=== PATIENT | male | born 1995 | race African-American/Black ===

== ENCOUNTER 2017-12-14 21:06 | Emergency (ER) | payer OTHER ==
[~2017-12-14] VITALS: Ht 180.3 cm; Wt 64.0 kg
[2017-12-14 21:10] VITALS: BP 144/86; TEMP 97.8
[2017-12-14 22:23] VITALS: PULSE 88
== END 2017-12-14 22:23 | disposition home or self-care (01) ==
LOC: COL.ER 21:06
DX: J06.9 Acute upper respiratory infection, unspecified (principal); Z87.891 Personal history of nicotine dependence

== ENCOUNTER 2018-01-23 07:57 | Emergency (ER) | payer OTHER ==
[~2018-01-23] VITALS: Ht 180.3 cm; Wt 65.5 kg
[2018-01-23 08:07] VITALS: TEMP 98
[2018-01-23] MEDS ORDERED: LEXAPRO 10MG10 MG PO (08:10)
[2018-01-23 08:55] LABS: BASO # 0.1 (0.0-0.2); BASO % 1.3 % (0.0-2.0); EOS # 0.2 (0.0-0.7); EOS % 2.9 % (0-4.0); GRAN # 3.8 (1.4-6.5); GRAN % 62.1 % (42.2-75.2); HEMATOCRIT 44.7 % (42.0-52.0); HEMOGLOBIN 15.6 g/dl (13.5-18.0); LYMPH # 1.6 (1.2-3.4); LYMPH % 25.5 % (20.0-51.0); MEAN CELL VOLUME 83 fl (80.0-100.0); MEAN CORPUSCULAR HEMOGLOBIN 29 pg (27.0-31.0); MEAN CORPUSCULAR HGB CONC 35 g/dl (33.0-37.0); MEAN PLATELET VOLUME 9.3 fl (7.4-10.4); MONO # 0.5 (0.1-0.6); PLATELET COUNT 310 K/mm3 (130-400); RED BLOOD COUNT 5.37 M/mm3 (4.20-5.60); REDCELL DISTRIBUTION WIDTH-CV 13.6 % (11.5-14.5)
[2018-01-23 09:03] LABS: ALANINE AMINOTRANSFERASE 28 U/L (21-72); ALBUMIN 4.2 gm/dL (3.5-5.0); ALKALINE PHOSPHATASE 71 U/L (50-136); ANION GAP 12 mmol/L (7-16); AST,SGOT 35 U/L (15-37); BILIRUBIN,TOTAL 0.5 mg/dL (0.0-1.0); BLOOD UREA NITROGEN 11 mg/dL (9-20); CALCIUM 9.5 mg/dL (8.4-10.2); CARBON DIOXIDE 25 mmol/L (22-30); CHLORIDE 101 mmol/L (98-107); CREATININE, serum 0.87 mg/dL (0.66-1.25); GLUCOSE 85 mg/dL (74-106); POTASSIUM 3.7 mmol/L (3.4-5.0); SODIUM 139 mmol/L (137-145); TOTAL PROTEIN 7.6 gm/dL (6.4-8.2)
[2018-01-23 09:15] LABS: TROPONIN-I < 0.012 ng/mL (0.000-0.034)
[2018-01-23] MEDS ORDERED: PREDNISONE20 MG PO (10:20)
[2018-01-23] MEDS ORDERED: ZITHROMAX Z PA250 MG PO (10:20)
[2018-01-23 10:41] VITALS: BP 129/89; PULSE 66
== END 2018-01-23 10:46 | disposition home or self-care (01) ==
LOC: COL.ER 07:57
PROVIDERS: Emergency Medicine
DX: J45.909 Unspecified asthma, uncomplicated (principal); F17.210 Nicotine dependence, cigarettes, uncomplicated
CPT/HCPCS: J7512

== ENCOUNTER 2018-03-28 10:30 | Emergency (ER) | payer OTHER ==
[~2018-03-28] VITALS: Ht 180.3 cm; Wt 68.2 kg
[~2018-03-28 10:30] MED LIST: LEXAPRO 10MG10 MG PO; PREDNISONE20 MG PO; ZITHROMAX Z PA250 MG PO
[2018-03-28 10:33] VITALS: BP 138/78; PULSE 90; TEMP 98.2
== END 2018-03-28 11:22 | disposition home or self-care (01) ==
LOC: COL.ER 10:30
DX: S60.221A Contusion of right hand, initial encounter (principal); Z87.891 Personal history of nicotine dependence; W21.31XA Struck by shoe cleats, initial encounter; Y93.61 Activity, american tackle football

== ENCOUNTER 2018-04-28 16:32 | Emergency (ER) | payer OTHER ==
[~2018-04-28] VITALS: Ht 180.3 cm; Wt 68.2 kg
[2018-04-28 16:39] VITALS: BP 120/80; PULSE 115; TEMP 99
[2018-04-28] MEDS ORDERED: AMOXICILLIN 8751 TAB PO (17:12)
== END 2018-04-28 17:35 | disposition home or self-care (01) ==
LOC: COL.ER 16:32
DX: J01.90 Acute sinusitis, unspecified (principal); F17.210 Nicotine dependence, cigarettes, uncomplicated

== ENCOUNTER 2018-06-13 13:30 | Emergency (ER) | payer OTHER ==
[~2018-06-13] VITALS: Ht 180.3 cm; Wt 66.4 kg
[~2018-06-13 13:30] MED LIST changes: +AMOXICILLIN 8751 TAB PO
[2018-06-13 13:38] VITALS: BP 152/83; TEMP 98.4
[2018-06-13] MEDS ORDERED: FLEXERIL 1010 MG/TAB PO (15:53)
[2018-06-13] MEDS ORDERED: NORCO 325 MG-51 TAB PO (15:53)
[2018-06-13 16:29] VITALS: PULSE 65
== END 2018-06-13 16:21 | disposition home or self-care (01) ==
LOC: COL.ER 13:30
DX: S16.1XXA Strain of muscle, fascia and tendon at neck level, initial encounter (principal); S80.01XA Contusion of right knee, initial encounter; S20.211A Contusion of right front wall of thorax, initial encounter; Z87.891 Personal history of nicotine dependence; V89.2XXA Person injured in unspecified motor-vehicle accident, traffic, initial encounter

== ENCOUNTER 2020-06-04 14:58 | Emergency (ER) | payer SELFPAY ==
[~2020-06-04] VITALS: Ht 177.8 cm; Wt 62.3 kg
[~2020-06-04 14:58] MED LIST changes: +FLEXERIL 1010 MG/TAB PO; +NORCO 325 MG-51 TAB PO
[2020-06-04 15:05] VITALS: TEMP 98.5
[2020-06-04 15:41] LABS: COLLECTION METHOD CLEAN CATCH
[2020-06-04 15:54] LABS: TRICYCLIC ANTIDEPRESS URINE NEGATIVE
[2020-06-04 15:55] LABS: PH 7 (5-8); SQUAMOUS EPITHELIAL None Seen /hpf; URINE APPEARANCE Clear; URINE BACTERIA None Seen /hpf; URINE BILIRUBIN Negative (NEGATIVE); URINE BLOOD Negative (NEGATIVE); URINE COLOR Colorless; URINE GLUCOSE Negative (NEGATIVE); URINE KETONE Negative (NEGATIVE); URINE LEUKOCYTE ESTERASE Negative (NEGATIVE); URINE NITRATE Negative (NEGATIVE); URINE PROTEIN(semi-quant) Negative (NEGATIVE); URINE RBC None Seen /hpf; URINE UROBILINOGEN Negative (NEGATIVE)
[2020-06-04 16:56] LABS: BASO # 0.1 (0.0-0.2); BASO % 1.4 % (0.0-2.0); EOS # 0.2 (0.0-0.7); EOS % 2.3 % (0-4.0); HEMATOCRIT 45.3 % (42.0-52.0); HEMOGLOBIN 15.5 g/dl (13.5-18.0); LYMPH # 2.2 (1.2-3.4); LYMPH % 27.3 % (20.0-51.0); MEAN CELL VOLUME 84 fl (80.0-100.0); MEAN CORPUSCULAR HEMOGLOBIN 29 pg (27.0-31.0); MEAN CORPUSCULAR HGB CONC 34 g/dl (33.0-37.0); MEAN PLATELET VOLUME 9.2 fl (7.4-10.4); MONO # 0.5 (0.1-0.6); MONO % 5.7 % (1.7-9.3); PLATELET COUNT 402 K/mm3 (130-400); RED BLOOD COUNT 5.39 M/mm3 (4.20-5.60); REDCELL DISTRIBUTION WIDTH-CV 12.8 % (11.5-14.5)
[2020-06-04 17:13] LABS: ALANINE AMINOTRANSFERASE 38 U/L (4-49); ALKALINE PHOSPHATASE 85 U/L (50-136); ANION GAP 12 mmol/L (7-16); AST,SGOT 38 U/L (15-37); BILIRUBIN,TOTAL 0.7 mg/dL (0.0-1.0); BLOOD UREA NITROGEN 9 mg/dL (9-20); CALCIUM 9.8 mg/dL (8.4-10.2); CARBON DIOXIDE 26 mmol/L (22-30); CHLORIDE 100 mmol/L (98-107); CREATININE, serum 0.88 (0.66-1.25); GLUCOSE 90 mg/dL (74-106); POTASSIUM 3.7 mmol/L (3.4-5.0); SODIUM 137 mmol/L (137-145); TOTAL PROTEIN 8.7 gm/dL (6.4-8.2)
[2020-06-04 17:20] LABS: ACETAMINOPHEN < 10 ug/mL (10-30); ALCOHOL(ethanol),MEDICAL < 10 mg/dL; SALICYLATE < 1.0 mg/dL
[2020-06-04] MEDS ORDERED: ATIVAN 0.50.5 MG/TAB PO (20:17)
[2020-06-04 21:00] VITALS: BP 137/91; PULSE 63
== END 2020-06-04 21:05 | disposition home or self-care (01) ==
LOC: COL.ER 14:58
PROVIDERS: Family Medicine
DX: F32.9 Major depressive disorder, single episode, unspecified (principal); F41.9 Anxiety disorder, unspecified; F17.200 Nicotine dependence, unspecified, uncomplicated